=== PATIENT | male | born 1985 | race African-American/Black ===

== ENCOUNTER 2018-01-06 03:20 | Emergency (ER) | payer OTHER ==
[2018-01-06] MEDS ORDERED: Lidocaine 1% 20 ML MDV ONE (03:33)
[2018-01-06] MEDS ORDERED: Adacel (T-DAP) 0.5 ML VIAL ONE (03:41)
[2018-01-06] MEDS ORDERED: Bacitracin Zinc 1 Packet ONE (03:51)
== END 2018-01-06 04:45 | disposition home or self-care (01) ==
LOC: NAV ERS 03:20
DX: S61.011A Laceration without foreign body of right thumb without damage to nail, initial encounter (principal); W26.9XXA Contact with unspecified sharp object(s), initial encounter; Y92.69 Other specified industrial and construction area as the place of occurrence of the external cause
CPT/HCPCS: 12002; 90471; 90715; 99001; J2001